=== PATIENT | female | born 1985 | race Caucasian/White ===

== ENCOUNTER → 2019-05-13 12:40 | Outpatient (CLI) | payer OTHER, SELFPAY ==
--- NOTE | ~2019-05-13 | US_ITS ---
EXAMINATION: US OB >= 14 weeks Fetus DATE: 05/13/2019 13:23 INDICATION: Second trimester anatomic survey TECHNIQUE: Real-time ultrasound of the pelvis was performed. COMPARISON: None. FINDINGS: There is a single living fetus in vertex presentation. The placenta is anterior and 6.9 cm from the i nternal cervical os. heart rate is 150 beats per minute (bpm). cardiac activity and feta l movement are noted. The amniotic fluid index is subjectively normal. The following anatomy was identified as normal: 4 chamber heart 3 vessel cord cord insertion kidneys urinary bladder stomach spine diaphragm ventricles cisterna magna cerebellum The following biometric data were obtained: Biparietal diameter (BPD): 5.5 cm; head circumference (HC): 20.1 cm; abdominal circumference (AC): 18 .3 cm; femur length (FL): 3.6 cm. The femoral length to abdominal circumference ratio is greater than two standard deviations below the mean. These measurements are otherwise concordant. Estimated weight is 503 g +/- 75 g, which correlates with the 18th percentile when 09/09/2019 is used as estimated date of delivery. As single measurements, these parameters are each equal to the following estimated gestational ages w ith ranges of +/- 2 standard deviations: BPD: 22 weeks 5 days ( 21 weeks 0 days - 24 weeks 3 days). HC: 22 weeks 2 days ( 20 weeks 6 days - 23 weeks 5 days). AC: 23 weeks 1 days ( 21 weeks 1 days - 25 weeks 2 days). FL: 21 weeks 3 days ( 19 weeks 5 days - 23 weeks 2 days). estimated gestational age based solely on measurements from this exam is 22 weeks 3 days +/- 1 weeks 4 days. IMPRESSION: 1. Single living fetus in vertex presentation. 2. Estimated weight is 503 g +/- 75 g, which correlates with the 18th percentile when 09/09/2019 is used as estimated date of delivery. 3. Femoral length to abdominal circumference ratio greater than two standard deviations below the shashank n. Reviewed, dictated and finalized at location A. IMPRESSION: 1. Single living fetus in vertex presentation. 2. Estimated weight is 503 g +/- 75 g, which correlates with the 18th per centile when 09/09/2019 is used as estimated date of delivery. 3. Femoral length to abdominal circumference ratio greater than two standard de viations below the mean.
== END ==
PROVIDERS: Visit Provider Obstetrics & Gynecology
DX: Z34.82 Encounter for supervision of other normal pregnancy, second trimester (principal); Z3A.22 22 weeks gestation of pregnancy
CPT/HCPCS: 76805

== ENCOUNTER 2023-02-05 13:43 | Inpatient (IN) | payer OTHER, SELFPAY ==
[2023-02-05] VITALS (16 sets, daily range): BP systolic 120–153; BP diastolic 75–99; PULSE 90–113; RESP 14–20; TEMP 36.1–36.6; O2SAT 94–100; BMI 35.1
--- NOTE | ~2023-02-05 | CT_ITS ---
EXAMINATION: CT brain wo con DATE: 02/05/2023 15:02 INDICATION: Head injury and dizziness TECHNIQUE: Computed tomography (CT) of the head was performed without intravenous contrast. Sagittal and coronal reconstructions were performed. The mA was adjusted according to patient size. Iterative reconstruction technique was employed. The dose-length product was 681.00 mGy-cm. COMPARISON: None FINDINGS: No fracture. No acute intracranial hemorrhage, acute infarction or abnormal extra axial fluid collect ion. Ventricles are normal and symmetric. No mass/mass effect. Small left mastoid effusion. The orbit sand paranasal sinuses are normal. IMPRESSION: 1. No fracture or acute intracranial process. Reviewed, dictated and finalized at location A. OGRAPHY COORDINATOR
--- NOTE | ~2023-02-05 | CT_ITS ---
EXAMINATION: CTA chest PE protocol DATE: 02/05/2023 15:22 INDICATION: Left-sided chest pain. Elevated troponins. TECHNIQUE: Computed tomography (CT) pulmonary angiogram of the chest was performed with 100 mL Omnipa que-350 intravenous contrast. Additional 3D reconstructions utilizing coronal maximum intensity proje ction (MIP) were performed. Automated exposure control and iterative reconstruction technique were em ployed. The dose-length product was 714.53 mGy-cm. COMPARISON: None FINDINGS: Good contrast opacification of the pulmonary arteries. There is mild streak artifact from dense contr ast in the superior vena cava and right atrium. Mild to moderate basilar predominant scattered respir atory motion artifact which mildly decreases sensitivity in the basilar segmental and subsegmental pu lmonary arteries. No pulmonary embolism. No pneumonia, pulmonary edema or other pulmonary infiltrates . No pleural effusion or pneumothorax. Heart size is normal. No pericardial effusion. Thoracic aorta is normal in caliber with no dissection. No pathologically enlarged thoracic lymphadenopathy. Status post cholecystectomy. Mild thoracic dextrocurvature with mild spondylosis. IMPRESSION: 1. No pulmonary embolism or other acute cardiopulmonary disease. Reviewed, dictated and finalized at location A. H SANDER
--- NOTE | ~2023-02-05 | XR_ITS ---
EXAMINATION: XR chest 2V DATE: 02/05/2023 14:52 INDICATION: Chest pain TECHNIQUE: PA and lateral views of the chest are obtained. COMPARISON: None available FINDINGS: The lungs are free of acute opacities. No pleural effusion or pneumothorax. The cardiomedia stinal silhouette is normal. The visualized bones and soft tissues are unremarkable. IMPRESSION: 1. No acute cardiopulmonary abnormality. Reviewed, dictated and finalized at location L. OSTRATEGY BI DEVELOPER
--- NOTE | 2023-02-05 13:44 | ECG_ITS ---
Measurements Intervals [place] Rate: 111 P: 59 OR: 156 QRS: 74 QRSD: 90 T: 55 QT: 336 QTc: 458 Interpretive Statements SINUS TACHYCARDIA POSSIBLE LEFT ATRIAL ENLARGEMENT [-0.1mV P WAVE IN V1/V2] NONSPECIFIC T-WAVE ABNORMALITY ABNORMAL ECG NO PREVIOUS ECG AVAILABLE FOR COMPARISON Electronically Signed On 02-05-2023 14:09:35 DANCE HISTORIAN by Warner Chan M.D.
[2023-02-05 14:27] LABS: Hemoglobin 15.4 g/dL (12.0-15.0); Mean Corpuscular Hemoglobin 31.9 pg (26-34); Mean Corpuscular Volume 91.1 fl (80-100); Platelet Count Result 210 k/mm3 (150-375); Red Blood Count 4.83 M/mm3 (4.2-5.4); Red Cell Distribution Width 11.7 % (11.5-14.5); White Blood Count 9.6 K/mm3 (4.5-10.0)
[2023-02-05 14:28] LABS: Basophils Percent Auto 0.3 % (0.2-1.2); Immature Granulocyte Absolute 0.02 K/mm3 (0.00-0.031); Immature Granulocyte Percent A 0.2 % (0-0.5); Lymphocytes Absolute Auto 1.84 K/mm3 (0.9-3.2); Lymphocytes Percent Auto 19.2 % (18.3-44.2); Mean Platelet Volume 10.2 fl (7.4-10.4); Monocytes Absolute Auto 0.5 K/mm3 (0.1-0.6); Monocytes Percent Auto 4.7 % (2.6-8.5); Neutrophils Absolute Auto 7.2 K/mm3 (1.3-6.7); Neutrophils Percent Auto 75.6 % (45.5-73.1)
[2023-02-05 14:39] LABS: INR 0.9; Prothrombin Time 12.6 Seconds (11.1-14.7)
[2023-02-05 14:40] LABS: Alanine Aminotransferase 25 U/L (6-35); Albumin Level 4.6 g/dL (3.5-5.1); Alkaline Phosphatase 63 U/L (38-126); Anion Gap 8 mmol/L (8-16); Aspartate Amino Transferase 32 U/L (14-36); Bilirubin,Total 0.5 mg/dL (0.2-1.3); Blood Urea Nitrogen 9 mg/dL (7-17); Calcium 10.1 mg/dL (8.4-10.2); Carbon Dioxide 23 mmol/L (22-30); Chloride 104 mmol/L (98-107); Estimated Glomerular Filt Rate > 60; Glucose 139 mg/dL (65-110); Lipase 49 U/L (23-300); Partial Thromboplastin Time 30.7 SECONDS (22.3-36.8); Potassium 3.9 mmol/L (3.4-5.0); Sodium 135 mmol/L (137-145)
--- NOTE | 2023-02-05 14:48 | ED.CHESTPAIN ---
HPI - Chest Pain General Chief Complaint: Chest Pain Stated Complaint: chest pain Time Seen by Provider: 02/05/23 14:07 History of Present Illness HPI narrative: 37-year-old female presents to the emergency department for evaluation of left-sided chest pain. Patient states that she woke up this morning she had onset of the chest pain that did radiate to her back. Patient states she did have recent cough but denies any associated fevers. Patient states the chest pain started this morning does radiate to her back. Patient denies any diaphoresis or associated nausea vomiting or shortness of breath. Patient denies any prior cardiac history denies any prior history of PE or DVT. Related Data Allergies Allergy/AdvReac Type Severity Reaction Status Date / Time azithromycin Allergy Blister Verified 02/05/23 14:22 [From Zithromax Z-Jasen] citalopram [From Celexa] AdvReac Blister Verified 02/05/23 14:22 Review of Systems Review of Systems: All systems reviewed & are unremarkable except as noted in HPI and below PMFSH Past Medical History Medical History (Updated 02/05/23 @ 16:22 by Shirley Moody PA-C) Depression Mixed connective tissue disease Social History Social History (Updated 02/05/23 @ 16:22 by Shirley Moody PA-C) Social History: Surrogate medical decision maker: Code status: Full code. Exam Narrative: APPEARANCE: Well appearing, no pain, no distress, well-nourished. HEAD: normocephalic, atraumatic. EYES: PERRLA/EOMI, conjunctivae clear. NOSE: Normal no drainage EARS:TMS clear with good light reflex. THROAT: Pharynx clear, no exudate. NECK: Supple. No adenopathy, no masses. RESPIRATORY: Airway patent, respirations nonlabored. Clear to auscultation bilaterally, no rales, rhonchi, wheezing. CARDIOVASCULAR: Regular rate and rhythm without murmurs rubs or gallops. ABDOMINAL: Soft, nontender, nondistended, normal bowel sounds MUSCULOSKELETAL: Moves all extremities. Strength/ROM intact, No edema, No calf tenderness. reproducible left-sided chest wall tenderness to palpation NEURO: Alert. Cranial nerves II through XII intact. Grossly intact SKIN: Warm, dry. Normal Color Course Course Emergency Course: 37-year-old female presenting to the ED for evaluation of left-sided chest pain. Patient is afebrile with no leukocytosis and a stable hemoglobin of 15.4. EKG showed no evidence of acute STEMI. Patient does have an elevated troponin of 0.426. CTA showed no evidence of pulmonary embolism. CTA was negative for pulmonary embolism. case was discussed with Cardiology and they are comfortable to plan for starting heparin for concern for an NSTEMI. Patient has no hematemesis, and denies any vaginal bleeding or rectal bleeding. cardiology was consulted and patient was started on heparin. Case was discussed with the hospitalist and patient was accepted for admission to the IMU. Patient and family are updated on the results of the workup plan for admission. All questions and concerns were addressed. Vital Signs Vital signs: Vital Signs Temperature 97.8 F 02/05/23 13:45 Pulse Rate 112 H 02/05/23 13:45 Respiratory Rate 16 02/05/23 13:45 Blood Pressure 131/93 H 02/05/23 13:45 Pulse Oximetry 100 02/05/23 13:45 Oxygen Delivery Room Air 02/05/23 13:45 Temperature 97.8 F 02/05/23 13:45 Pulse Rate 96 02/05/23 17:08 Respiratory Rate 17 02/05/23 17:08 Blood Pressure 153/99 H 02/05/23 16:06 Pulse Oximetry 98 02/05/23 17:08 Oxygen Delivery Room Air 02/05/23 13:45 MDM - Chest Pain Differential Diagnosis Differential diagnosis: Likely unstable angina pectoris, atypical chest pain and other Lab Data Attestation: I reviewed the patient's lab results. 02/05/23 14:17 02/05/23 14:17 Labs: Lab Results 02/05/23 02/05/23 Range/Units 14:16 14:17 WBC 9.6 (4.5-10.0) K/mm3 RBC 4.83 (4.2-5.4) M/mm3 Hgb 15.4 H (12
[2023-02-05 14:57] LABS: Troponin I 0.426 ng/mL (0.000-0.034)
[2023-02-05 15:22] LABS: D Dimer 0.34 ug/mL (<0.48)
[2023-02-05] MEDS: ASPIRIN 81 MG CHEWABLE TABLET 324 MG PO (15:25)
--- NOTE | 2023-02-05 15:45 | ECG_ITS ---
Measurements Intervals [place] Rate: 93 P: 44 [place]: 185 QRS: 63 QRSD: 95 T: 60 QT: 378 QTc: 472 Interpretive Statements SINUS RHYTHM MINOR T-WAVE ABNORMALITY BORDERLINE ECG COMPARED TO ECG 02/05/2023 13:51:47 NO SIGNIFICANT CHANGE Electronically Signed On 02-06-2023 13:49:02 TELEGRAPHIC TYPEWRITER REPAIRER by Miguel Pruitt M.D.
[2023-02-05] MEDS: MORPHINE SULFATE (*CRX) 4 MG/ML INJ IV PUSH (15:55)
[2023-02-05] MEDS: NITROGLYCERIN OINTMENT 1 INCH DOSE TRANSDERM ×2 (15:55→23:42)
--- NOTE | 2023-02-05 16:18 | PM.IMHP ---
H&P: HPI History of Present Illness Date/Time: 02/05/23 16:00 Chief Complaint: Chest pain. Narrative: This is a pleasant 37-year-old female smoker with mixed connective tissue disease no longer on medication who presented to the emergency department via private vehicle from home for evaluation of chest pain. The patient provides the following history. She felt fine when she went to sleep last night and when she got up around 07:00 she noticed a burning and pressure-like discomfort in the left upper chest. At times it radiates across to the right upper chest and to the left shoulder and left upper arm. She feels a bit short of breath with that as well and reports having 1 episode of nausea and vomiting this morning. She denies aggravating factors. Morphine 4 mg given in the ED improved her discomfort from 06/02 to 05/02. Nitropaste has not had any meaningful affect. Initial troponin was 0.426. EKG did not show any acute ST segment elevations or depressions. She was started on a heparin drip and is being admitted to the IMU in this setting for close monitoring and Cardiology consultation. She has no known history of cardiac disease. Her father of an [place] in his late 50s. She believes her sister had some sort of cardiac event in her 20s but they are not in close contact and she does not know any specifics. She has never had similar symptoms. Review of Systems Review of Systems: Twelve systems were reviewed. Patient reports having a fall approximately 1 week ago where she hit her head on the left side of her chest. There was no loss of consciousness or injuries. She did not notice any bruising over the chest wall. No fever, chills, or sweats. No recent cold or flu symptoms. She was diagnosed with mixed connective tissue disorder, unspecified, couple of years ago. She has been on several DMARDs and she was last prescribed leflunomide though she has not taken that for at least 5 months that she did not see any benefit from it. She endorses Raynaud's as well. She believe she has Sjogren's but has always tested negative for it. No orthopnea, paroxysmal nocturnal dyspnea, or lower extremity edema. She denies recent travel. No history of venous thromboembolism. Except as documented, all other systems were reviewed and are negative. [facility] Past Medical History Medical History (Updated 02/05/23 @ 22:28 by Shirley Moody PA-C) Depression Mixed connective tissue disease Tobacco dependence Surgical History Surgical History (Updated 02/05/23 @ 22:27 by Shirley Moody PA-C) History of cholecystectomy Family History Family History Mother Hyperlipidemia Rheumatoid arthritis Sibling Heart attack Multiple sclerosis Breast cancer Father Heart attack Social History Social History (Updated 02/05/23 @ 22:27 by Shirley Moody PA-C) Social History: Surrogate medical decision maker: Jose Armando Burt, spouse. Code status: Full code. Smoking packs per day: 1 Smoking cigarettes per day: 20.0 Years smoked: 15 Smoking pack-years: 15.00 Smoking status: Current every day smoker Lack of Transportation: No Lack of Food: Never True Current Housing: I Have Housing Concerned About Future Housing: No Difficulty Paying Gas/Electric Bills: No Difficulty Paying for Meds: YES Currently Unemployed: YES Education: Trade/Vocational Certificate Difficulty w/ Childcare or Family Care: No Additional living arrangements comments: Lives with spouse in 3-1/2-year-old daughter. Additional occupation/education comments: Homemaker. Spiritual care concerns: No Meds Home Medications and Allergies Home Medications Medication Instructions Recorded Confirmed Type melatonin 5 mg tablet 5 mg PO HS 02/05/23 02/05/23 History omeprazole 40 mg capsule,delayed 40 mg PO DAILY 02/05/23 02/05/23 History release vilazodone 10 mg tablet 10 mg DAILY 02/05/23 02/05/23 H
[2023-02-05] MEDS: HEPARIN SOD/D5W 100 UNITS/ML 25,000 UNITS/250 ML BAG 9 UNITS IV CONT (16:28)
[2023-02-05] MEDS: HEPARIN SODIUM 5,000 UNITS/ML VIAL 4000 UNITS IV PUSH ×2 (16:28→23:28)
--- NOTE | 2023-02-05 17:27 | ECG_ITS ---
Measurements Intervals [place] Rate: 89 P: 40 [place]: 181 QRS: 60 QRSD: 89 T: 60 QT: 388 QTc: 475 Interpretive Statements SINUS RHYTHM NORMAL ELECTROCARDIOGRAM COMPARED TO ECG 02/05/2023 16:02:14 NO SIGNIFICANT CHANGES Electronically Signed On 02-06-2023 13:52:27 GLOBAL PROFESSIONAL by Miguel Pruitt M.D.
--- NOTE | 2023-02-05 18:50 | ADMGEN ---
This patient, Isabelle Good, was admitted to IMU Room 202-01 at 1840. Patient/family oriented to hospital policies and general routines including ID bracelet, bed and alarms, visiting hours, pain management, procedures, bathroom and other care routines, personal items, smoking policy, room service/diet, and visiting hours. Information on how to activate the Rapid Response Team has been discussed. Patient/Family are encouraged to report perceived risks to care and to ask questions if they do not understand what they are told or what they should do.
--- NOTE | 2023-02-05 22:00 | ECG_ITS ---
Measurements Intervals [place] Rate: 104 P: 52 [place]: 188 QRS: 76 QRSD: 90 T: 72 QT: 365 QTc: 482 Interpretive Statements SINUS TACHYCARDIA NONSPECIFIC T-WAVE ABNORMALITY ABNORMAL RHYTHM ECG COMPARED TO ECG 02/05/2023 17:13:53 SINUS TACHYCARDIA NOW PRESENT NO SIGNIFICANT CHANGE Electronically Signed On 02-06-2023 14:01:35 MECHANICAL MAINTENANCE ENGINEER by Miguel Pruitt M.D.
[2023-02-05] MEDS: MORPHINE SULFATE (*CRX) 2 MG/ML INJ IV PUSH (22:07)
[2023-02-05 23:03] LABS: Partial Thromboplastin Time 43.9 SECONDS (22.3-36.8)
[2023-02-05] MEDS: METOPROLOL TARTRATE 25 MG TABLET PO (23:25)
[2023-02-05] MEDS: MELATONIN 5 MG TABLET PO (23:25)
[2023-02-05] MEDS: NITROGLYCERIN SL 0.4 MG TABLET SUBLINGUAL (23:26)
[2023-02-05 23:55] LABS: Amphetamine Screen Urine Negative (Negative); Barbiturate Screen Urine Negative (Negative); Benzodiazepines Screen Urine Negative (Negative); Cannabinoid Screen Urine Negative (Negative); Cocaine Screen Urine Negative (Negative); Methadone Screen Urine Negative (Negative); Opiate Screen Urine Positive (Negative); Phencyclidine Screen Urine Negative (Negative)
[2023-02-06] VITALS (25 sets, daily range): BP systolic 89–114; BP diastolic 58–78; PULSE 84–106; RESP 14–21; TEMP 36.1–36.4; O2SAT 97–100
[2023-02-06] MEDS: ACETAMINOPHEN 325 MG TABLET 650 MG PO ×4 (04:40→21:29)
[2023-02-06] MEDS: NITROGLYCERIN OINTMENT 1 INCH DOSE TRANSDERM (05:41)
[2023-02-06 06:11] LABS: Basophils Percent Auto 0.2 % (0.2-1.2); Hematocrit 41.9 % (37.0-47.0); Hemoglobin 14.1 g/dL (12.0-15.0); Immature Granulocyte Absolute 0.04 K/mm3 (0.00-0.031); Immature Granulocyte Percent A 0.4 % (0-0.5); Lymphocytes Absolute Auto 2.43 K/mm3 (0.9-3.2); Lymphocytes Percent Auto 25.3 % (18.3-44.2); Mean Corpuscular HGB Conc 33.7 g/dl (32-36); Mean Corpuscular Hemoglobin 31.7 pg (26-34); Mean Corpuscular Volume 94.2 fl (80-100); Mean Platelet Volume 10.3 fl (7.4-10.4); Monocytes Absolute Auto 0.6 K/mm3 (0.1-0.6); Monocytes Percent Auto 6.1 % (2.6-8.5); Neutrophils Absolute Auto 6.5 K/mm3 (1.3-6.7); Platelet Count Result 202 k/mm3 (150-375); Red Blood Count 4.45 M/mm3 (4.2-5.4); Red Cell Distribution Width 11.9 % (11.5-14.5); White Blood Count 9.6 K/mm3 (4.5-10.0)
[2023-02-06 06:25] LABS: Partial Thromboplastin Time 74.9 SECONDS (22.3-36.8)
[2023-02-06] MEDS: ASPIRIN 81 MG CHEWABLE TABLET PO (08:42)
[2023-02-06] MEDS: METOPROLOL TARTRATE 25 MG TABLET PO (08:42)
[2023-02-06] MEDS: PANTOPRAZOLE 40 MG TABLET PO ×2 (08:42→17:34)
--- NOTE | 2023-02-06 10:07 | PM.CNCAR ---
Assessment and Plan Assessment and plan (1) Non-ST elevation myocardial infarction (NSTEMI): Code(s): I21.4 - Non-ST elevation (NSTEMI) myocardial infarction Status: Acute Plan this is a 37-year-old woman presenting to the hospital with a chest pain syndrome yesterday she says she has been having episodes like this for a number of years but never has had a diagnosis made other than anxiety. Her electrocardiograms are benign but her troponin level did significantly rise raising concern regarding premature coronary disease. In this setting and angiogram should be performed she understands this the procedure along with its risks and details were explained to the patient at the time of this consultation. It is certainly possible that she has early coronary disease given her history of smoking at this also likely that this could represent an episode of vasospastic infarction or spontaneous coronary dissection in this relatively young woman Miguel Pruitt MD [facility] History of Present Illness History of Present Illness Consult date/time: 02/06/23 10:07 Reason For Visit: chest pain,elevated troponin Narrative: this is a 37-year-old woman I am seeing at the request of the hospitalist this morning because of chest pain with significant troponin elevation in the presumptive diagnosis of non ST elevation [place]. She is unknown to me prior to this encounter. She is not known to have any specific cardiac problems prior to this. She does carry the diagnosis of an anxiety disorder and she has been having episodes of occasional chest pain for a number of years. She says that she typically does not seek medical attention for this and on occasions when she has she has had negative ER evaluations and has been told that she probably has an anxiety disorder. She does follow with the psychiatrist for this. She is a cigarette smoker but does not have any other known risk factors for ischemic heart disease. She was awakened from sleep yesterday in the morning with some chest pain she describes it is a dull throbbing sensation in the region of her left breast. It radiated across to the right side of the chest and then up into both shoulders during the course of the day. There was no associated air hunger nausea vomiting or diaphoresis. In the afternoon she did decide to come into the emergency room for evaluation. Her electrocardiogram appeared to be unremarkable her troponin levels were slightly out of normal range but following that nancy up to over 8. She has had 4 electrocardiograms done since she has been admitted which were unremarkable. She has been anticoagulated with heparin and given some nitroglycerin paste which has caused her to have a headache. The chest pain gradually faded away during the course of the evening last evening she only is complaining of what appears to be a nitrate headache this morning. She does not exercise regularly but does not have a history of exertional chest pain in general. She is and has a 3-year-old daughter. Review of Systems Constitutional: Constitutional: Reports no additional constitutional complaints Eyes: Eyes: Reports no additional eye complaints ENT: Reports system reviewed and no additional complaints, except as documented Cardiovascular: Cardiovascular: Reports as per HPI Respiratory: Respiratory: Reports no additional respiratory complaints Gastrointestinal: Gastrointestinal: Reports no additional gastrointestinal complaints Musculoskeletal: Musculoskeletal: Reports no additional musculoskeletal complaints Integumentary/Breasts: Skin/Breast: Reports system reviewed and no additional complaints, except as docu Neurologic: Reports system reviewed and no additional complaints, except as documented Psychiatric: Psychiatric: Reports as per HPI Endocrine: Endocrine: Reports no additional endocrine complaints Hematologic/Lymphatic: Hematologic/Lymphatic: Reports no additional hemato
--- NOTE | 2023-02-06 10:13 | WPDMODSED ---
Moderate Sedation Note-Pt Data Patient Data Diagnosis: acute coronary syndrome/ non ST elevation [place] Present Complaint: chest pain Procedure to be performed/Plan: left heart catheterization Allergies Allergy/AdvReac Type Severity Reaction Status Date / Time azithromycin Allergy Blister Verified 02/05/23 14:22 [From Zithromax Z-Jasen] citalopram [From Celexa] AdvReac Blister Verified 02/05/23 14:22 Home Medications Medication Instructions Recorded Confirmed Type melatonin 5 mg tablet 5 mg PO HS 02/05/23 02/05/23 History omeprazole 40 mg capsule,delayed 40 mg PO DAILY 02/05/23 02/05/23 History release vilazodone 10 mg tablet 10 mg DAILY 02/05/23 02/05/23 History vilazodone 20 mg tablet 20 mg DAILY 02/05/23 02/05/23 History Current Medications: Active Medications Acetaminophen (Acetaminophen 325 Mg Tablet) 650 mg PO Q4H PRN PRN Reason: Mild Pain (1-3) or Fever Last Admin: 02/06/23 08:45 Dose: 650 mg Aspirin (Aspirin 81 Mg Chewable Tablet) 81 mg PO DAILY@0800 [facility] Last Admin: 02/06/23 08:42 Dose: 81 mg Heparin Sodium (Porcine) (Heparin Sodium 5,000 Units/Ml Vial) 4,000 units IV PUSH PRN PRN PRN Reason: aPTT less than 55 seconds Last Admin: 02/05/23 23:28 Dose: 4,000 units Heparin Sodium (Porcine) (Heparin Sodium 5,000 Units/Ml Vial) 3,000 units IV PUSH PRN PRN PRN Reason: aPTT 55 - 70 seconds Heparin Sodium/Dextrose (Heparin Sodium/D5w 100 Units/Ml) 25,000 units in 250 mls @ 12 mls/hr IV CONT .[id number] [facility]; Protocol Last Titration: 02/06/23 06:41 Dose: 1,200 units/hr, 12 mls/hr Melatonin (Melatonin 5 Mg Tablet) 5 mg PO HS [facility] Last Admin: 02/05/23 23:25 Dose: 5 mg Metoprolol Tartrate (Metoprolol Tartrate 25 Mg Tablet) 25 mg PO Q12HR [facility] Last Admin: 02/06/23 08:42 Dose: 25 mg Morphine Sulfate (Morphine Sulfate (*Crx) 2 Mg/Ml Inj) 2 mg IV PUSH Q2H PRN PRN Reason: Pain Rated 7-10 Last Admin: 02/05/23 22:07 Dose: 2 mg Nitroglycerin (Nitroglycerin Sl 0.4 Mg Tablet) 0.4 mg SUBLINGUAL Q5MIN PRN PRN Reason: Chest Pain Last Admin: 02/05/23 23:26 Dose: 0.4 mg Nitroglycerin (Nitroglycerin Ointment 1 Inch Dose) 1 inch TRANSDERM Q6HR [place] Last Admin: 02/06/23 05:41 Dose: 1 inch Ondansetron HCl (Ondansetron Inj 4 Mg/2 Ml Vial) 4 mg IV PUSH Q4H PRN PRN Reason: Nausea Pantoprazole Sodium (Pantoprazole 40 Mg Tablet) 40 mg PO BID [facility] Last Admin: 02/06/23 08:42 Dose: 40 mg Sedation/Anesthesia: No previous sedation/anesthesia problems (including family history). [facility] Past Medical History Medical History (Updated 02/05/23 @ 22:28 by Shirley Moody PA-C) Depression Mixed connective tissue disease Tobacco dependence Surgical History Surgical History (Updated 02/05/23 @ 22:27 by Shirley Moody PA-C) History of cholecystectomy Family History Family History Mother Hyperlipidemia Rheumatoid arthritis Sibling Heart attack Multiple sclerosis Breast cancer Father Heart attack Social History Social History (Updated 02/05/23 @ 22:27 by Shirley Moody PA-C) Social History: Surrogate medical decision maker: Jose Armando Good, spouse. Code status: Full code. Smoking packs per day: 1 Smoking cigarettes per day: 20.0 Years smoked: 15 Smoking pack-years: 15.00 Smoking status: Current every day smoker Lack of Transportation: No Lack of Food: Never True Current Housing: I Have Housing Concerned About Future Housing: No Difficulty Paying Gas/Electric Bills: No Difficulty Paying for Meds: YES Currently Unemployed: YES Education: Trade/Vocational Certificate Difficulty w/ Childcare or Family Care: No Additional living arrangements comments: Lives with spouse in 3-1/2-year-old daughter. Additional occupation/education comments: Homemaker. Spiritual care concerns: No Mod Sed Physical Exam Physical Exam Pre Procedural Exam: Normal: Neck, Throat,
--- NOTE | 2023-02-06 10:35 | PC.NURSE ---
Patient to Histologist Technologist
--- NOTE | 2023-02-06 11:22 | P.PCNCC_ITS ---
Cardiac Cath Procedure Note Date of procedure:: 02/06/23 Performing physician:: Miguel Pruitt MD Indication:: chest pain troponin rise / coronary syndrome Brief clinical history:: this is a 37-year-old woman without any prior history of coronary disease who entered the hospital with a chest pain event which has resolved. Her electrocardiograms have looked benign but troponin level did rise significantly. This prompted recommendation for angiography. Risk factors include cigarette smoking Procedure Procedure performed:: left ventriculogram coronary angiogram Sedation/Medication given:: fentanyl 25 mg Versed 2 mg case start time 11:01 a.m. case end time 11:19 a.m. sedation provided by Michael Pollard RN, trained observer Access site:: right femoral artery Estimated blood loss:: 25 cc Procedure note:: patient brought to the cardiac catheterization lab in the postabsorptive state where the right femoral triangle was prepared and draped in the usual fashion. Anesthesia was given with 1% lidocaine infiltrated locally. Using the modified Seldinger technique a 5 Chadian sheath was placed into the right femoral artery and left heart catheterization was then carried out. I initially used a 5 Chadian angled pigtail catheter to measure left-sided hemodynamics and to inject and left ventriculogram in the JONES projection. Following this standard 5 Chadian FL4 catheter was used to engage inject the left coronary artery in multiple projections. A 5 Chadian JR4 catheter was used to engage the inject the right coronary artery in orthogonal projections. The procedure was then terminated the angiograms were reviewed. The sheath was removed in the room on the clinical laboratory science professor table with direct manual compression. There were no apparent procedural complications and there was no evidence of groin hematoma at conclusion of the case. Findings:: Hemodynamics: central aortic pressure is 100/64. left ventricle 100/0 end-diastolic 8. No transvalvular gradient on pullback across the aortic valve. Left ventricle: The LV is normal in size contractility is hyperdynamic with an ejection fraction of 80% without any regional wall motion abnormalities. The left main coronary artery is nicely patent the left anterior descending is a moderate caliber artery extending down to the apex. There is minimal luminal irregularity noted in the proximal LAD but no functionally significant stenosis is seen in the entirety of the LAD or in its branches. No evidence of a spontaneous coronary dissection was seen the circumflex is a large caliber vessel giving rise to the marginal branches and a large posterior branch. The circumflex system is smooth and angiographically normal in appearance the right coronary artery is large in caliber and dominant to the posterior circulation the right coronary artery is also smooth and angiographically normal in appearance Conclusion:: 1. right coronary dominant circulation with minimal plaquing in the proximal LAD but no functionally significant coronary artery disease is identified 2. hyperdynamic left ventricular systolic function 3. presumptive diagnosis of her chest pain in troponin rise appears to be coronary spasm. Miguel Pruitt MD FACC Assessment and Plan Assessment and plan (1) Non-ST elevation myocardial infarction (NSTEMI): Code(s): I21.4 - Non-ST elevation (NSTEMI) myocardial infarction Status: Acute
--- NOTE | 2023-02-06 11:30 | PM.IMPN ---
Progress Note: A&P Assessment and Plan (1) Non-ST elevation myocardial infarction (NSTEMI): Code(s): I21.4 - Non-ST elevation (NSTEMI) myocardial infarction Status: Acute Assessment and Plan: Chest CTA was negative for PE and other acute findings. EKG shows sinus tachycardia with some nonspecific T-wave abnormalities. Troponin trend: 0.426 --> 1.590 --> 7.880. No known history of cardiac disease but early family history of the same. Received aspirin 324 mg x 1 in the ED. She has been started on a heparin drip. Schedule metoprolol tartrate 25 mg b.i.d.. Patient is scheduled for cardiac catheterization today. Will continue with IV heparin.. (2) Mixed connective tissue disease: Code(s): M35.1 - Other overlap syndromes Status: Acute Assessment and Plan: She has been off leflunomide for the last 5 months or so as she saw no benefit. Patient will be referred back to primary care for evaluation and treatment (3) Depression: Code(s): F32.A - Depression, unspecified Status: Acute Assessment and Plan: No acute issues. Continue vilazodone. (4) Tobacco dependence: Code(s): F17.200 - Nicotine dependence, unspecified, uncomplicated Status: Acute Assessment and Plan: Smoking cessation is imperative and was discussed. Patient was told she will not receive a nicotine patch given [place]. Subjective Date/time seen: 02/06/23 11:30 Interval history: Patient was seen during rounds today. Patient has mild chest pain. No shortness of breaths Abdominal pain, nausea, no vomiting. Mood stable. Review of Systems Review of Systems: Twelve systems were reviewed. Patient reports having a fall approximately 1 week ago where she hit her head on the left side of her chest. There was no loss of consciousness or injuries. She did not notice any bruising over the chest wall. No fever, chills, or sweats. No recent cold or flu symptoms. She was diagnosed with mixed connective tissue disorder, unspecified, couple of years ago. She has been on several DMARDs and she was last prescribed leflunomide though she has not taken that for at least 5 months that she did not see any benefit from it. She endorses Raynaud's as well. She believe she has Sjogren's but has always tested negative for it. No orthopnea, paroxysmal nocturnal dyspnea, or lower extremity edema. She denies recent travel. No history of venous thromboembolism. Except as documented, all other systems were reviewed and are negative. Exam Narrative: General: A well-developed, nontoxic-appearing female sitting up in bed in no acute distress. Weight: 98.7 kg. BMI: 35.1. HEENT: PERRL, EOMI. Sclera anicteric. Tacky mucous membranes. Upper and lower denture plates in place. Neck: Supple. Respiratory: Lungs are clear to auscultation bilaterally. Cardiovascular: Regular rate and rhythm with S1-S2. Gastrointestinal: Abdomen is soft, nontender, and nondistended with positive bowel sounds. Skin: Warm and dry. No rash or lesions on limited exam. Extremities: No cyanosis, clubbing, or edema. Radial and pedal pulses intact. Neurological: Alert. Cranial nerves 2-12 are grossly intact. No gross focal deficits to casual conversation. Psychiatric: Pleasant and cooperative with normal mood and affect. Judgment and insight intact. Objective Data Vital Signs Vital Signs: Vital Signs - 24 hr 02/05/23 13:45 02/05/23 16:06 02/05/23 13:59 Temperature 36.6 C Pulse Rate 112 H 90 96 Respiratory Rate 16 20 Blood Pressure 131/93 H 153/99 H Pulse Oximetry 100 99 Oxygen Delivery Room Air 02/05/23 14:16 02/05/23 15:22 02/05/23 15:30 Temperature Pulse Rate 100 100 99 Respiratory Rate 14 16 16 Blood Pressure 150/96 H Pulse Oximetry 94 99 Oxygen Delivery 02/05/23 16:00 02/05/23 16:01 02/05/23 16:15 Temperature Pulse Rate 93 94 92 Respiratory Rate 16 16 14 Blood Pressure 153/99 H Pulse
--- NOTE | 2023-02-06 13:07 | PC.NURSE ---
Patient back from [facility]
[2023-02-06] MEDS: SODIUM CHLORIDE 0.9% IV 1,000 ML 125 ML IV CONT (13:16)
[2023-02-06] MEDS: dilTIAZem HCL CD 120 MG CAP.24HR PO (13:17)
[2023-02-06] MEDS: MORPHINE SULFATE (*CRX) 2 MG/ML INJ IV PUSH (13:21)
[2023-02-06 14:34] LABS: Activated Clotting Time 125 SEC (74-137)
[2023-02-06 14:45] LABS: Partial Thromboplastin Time 29.4 SECONDS (22.3-36.8)
[2023-02-06] MEDS: MELATONIN 5 MG TABLET PO (21:28)
[2023-02-07] VITALS (7 sets, daily range): BP systolic 96–112; BP diastolic 62–69; PULSE 85–107; RESP 14–18; TEMP 35.9–36.3; O2SAT 94–98
[2023-02-07] MEDS: ASPIRIN 81 MG CHEWABLE TABLET PO (08:57)
[2023-02-07] MEDS: ISOSORBIDE MONONITRATE 30 MG TAB.ER.24H PO (08:57)
[2023-02-07] MEDS: dilTIAZem HCL CD 120 MG CAP.24HR PO (08:57)
[2023-02-07] MEDS: PANTOPRAZOLE 40 MG TABLET PO (08:57)
--- NOTE | 2023-02-07 10:27 | PM.PNCARD ---
Progress Note: A&P Assessment and Plan (1) Non-ST elevation myocardial infarction (NSTEMI): Code(s): I21.4 - Non-ST elevation (NSTEMI) myocardial infarction Status: Acute Plan 37-year-old lady with history of smoking but no other coronary risk factors she has presumed diagnosis of coronary spasm event as she had chest pain with moderate troponin rise but no significant coronary lesions seen angiographically. Low doses of isosorbide and diltiazem were started yesterday. She has some nausea today because of unpleasant odor in her room. Otherwise she is not having any cardiovascular issues this morning. In my opinion she is hopefully stable enough to be discharged. I will arrange appropriate follow-up in my office for this. We will reach out to her for an appointment on Thursday. Miguel Pruitt MD [facility] Subjective Date/time seen: Date of service: 02/07/23 10:27 Interval history: Follow-up visit in this 37-year-old woman with: Episode of chest pain with troponin rise indicative of acute myocardial injury. Upon angiography yesterday patient found not to have any significant coronary artery disease. Started on low doses of isosorbide and diltiazem for presumed coronary spasm event. Left ventricular systolic function was found to be hyperdynamic at the time of angiography. Exam Const: General: comfortable and no acute distress Other: Pleasant obese young lady no distress, somewhat nauseated this morning due to malodorous room HENMT: Mouth: Yes moist mucous membranes Eyes: Sclera: sclerae normal Neck: Neck: supple and no JVD Resp: Effort & Inspection: normal respiratory effort Auscultation: clear to auscultation bilaterally Cardio: Rate: regular rate Rhythm: regular rhythm Other: No murmur no gallop GI: GI Palp: Yes Soft to palpation Auscultation: normal bowel sounds Skin: General skin exam: normal color Neuro: Other: Alert and oriented x3 Extrem: Other: Normal pulses, no edema Objective Data Vital Signs Vital Signs: Vital Signs - 24 hr 02/06/23 12:00 02/06/23 12:15 02/06/23 12:30 Temperature Pulse Rate 85 84 91 Respiratory Rate 18 16 21 H Blood Pressure 89/69 L 100/71 95/78 L Pulse Oximetry 98 98 97 Oxygen Delivery Room Air Room Air Room Air 02/06/23 12:45 02/06/23 13:00 02/06/23 13:21 Temperature 36.4 C L Pulse Rate 94 93 89 Respiratory Rate 19 14 16 Blood Pressure 96/67 L 103/71 96/68 L Pulse Oximetry 98 98 97 Oxygen Delivery Room Air Room Air 02/06/23 14:00 02/06/23 14:21 02/06/23 13:30 Temperature 36.4 C L Pulse Rate 84 84 Respiratory Rate 14 Blood Pressure 108/65 Pulse Oximetry 100 Oxygen Delivery Room Air 02/06/23 15:05 02/06/23 16:49 02/06/23 16:00 Temperature 36.4 C L 36.4 C Pulse Rate 91 96 93 Respiratory Rate 18 18 Blood Pressure 109/67 107/65 Pulse Oximetry 99 97 Oxygen Delivery 02/06/23 16:00 02/06/23 18:00 02/06/23 17:00 Temperature Pulse Rate 99 94 Respiratory Rate 16 Blood Pressure 112/58 L Pulse Oximetry 99 Oxygen Delivery Room Air 02/06/23 18:00 02/06/23 21:08 02/06/23 20:00 Temperature 36.4 C L 36.2 C L Pulse Rate 99 92 103 H Respiratory Rate 14 14 Blood Pressure 114/64 106/72 Pulse Oximetry 100 100 Oxygen Delivery 02/06/23 20:00 02/06/23 22:00 02/07/23 00:00 Temperature 36.3 C L Pulse Rate 95 95 Respiratory Rate 14 Blood Pressure 112/66 Pulse Oximetry 100 94 Oxygen Delivery Room Air 02/07/23 00:00 02/07/23 00:00 02/07/23 02:00 Temperature Pulse Rate 93 95 Respiratory Rate Blood Pressure Pulse Oximetry 94 Oxygen Delivery Room Air 02/07/23 04:00 02/07/23 04:00 02/07/23 04:00 Temperature 35.9 C L Pulse Rate 96 85 Respiratory Rate 14 Blood Pressure 96/65 L Pulse Oximetry 96 96 Oxygen Delivery Room Air 02/07/23 06:00 02/07/23 08:00 Temperature 36.2 C L Pulse Rate 91 104 H Respiratory Rat
--- NOTE | 2023-02-07 14:06 | PM.DS ---
DS: Admitting Diagnosis Discharge Date 02/07/23 Admitting Diagnosis Chest pain DS: Discharge Diagnosis Discharge Diagnosis (1) Non-ST elevation myocardial infarction (NSTEMI): Code(s): I21.4 - Non-ST elevation (NSTEMI) myocardial infarction Status: Acute Assessment and Plan: Chest CTA was negative for PE and other acute findings. EKG shows sinus tachycardia with some nonspecific T-wave abnormalities. Troponin trend: 0.426 --> 1.590 --> 7.880. No known history of cardiac disease but early family history of the same. Received aspirin 324 mg x 1 in the ED. She has been started on a heparin drip. Schedule metoprolol tartrate 25 mg b.i.d.. Patient is scheduled for cardiac catheterization today. Will continue with IV heparin.. (2) Mixed connective tissue disease: Code(s): M35.1 - Other overlap syndromes Status: Acute Assessment and Plan: She has been off leflunomide for the last 5 months or so as she saw no benefit. Patient will be referred back to primary care for evaluation and treatment (3) Depression: Code(s): F32.A - Depression, unspecified Status: Acute Assessment and Plan: No acute issues. Continue vilazodone. (4) Tobacco dependence: Code(s): F17.200 - Nicotine dependence, unspecified, uncomplicated Status: Acute Assessment and Plan: Smoking cessation is imperative and was discussed. Patient was told she will not receive a nicotine patch given [place]. DS: Summary Hospital Course Hospital Course: 37-year-old female smoker with mixed connective tissue disease no longer on medication who presented to the emergency department via private vehicle from home for evaluation of chest pain Episode of chest pain with troponin rise indicative of acute myocardial injury.? Upon angiography patient found not to have any significant coronary artery disease.? Started on low doses of isosorbide and diltiazem for presumed coronary spasm event.? Left ventricular systolic function was found to be hyperdynamic at the time of angiography. All symptoms resolved. She was discharged in stable condition with close outpatient follow-up. Please see above and med rec for details. Time Spent with Patient Time attestation: Total time spent providing and/or coordinating discharge services: Exam Narrative: General: A well-developed, nontoxic-appearing female sitting up in bed in no acute distress. Weight: 98.7 kg. BMI: 35.1. HEENT: PERRL, EOMI. Sclera anicteric. Tacky mucous membranes. Upper and lower denture plates in place. Neck: Supple. Respiratory: Lungs are clear to auscultation bilaterally. Cardiovascular: Regular rate and rhythm with S1-S2. Gastrointestinal: Abdomen is soft, nontender, and nondistended with positive bowel sounds. Skin: Warm and dry. No rash or lesions on limited exam. Extremities: No cyanosis, clubbing, or edema. Radial and pedal pulses intact. Neurological: Alert. Cranial nerves 2-12 are grossly intact. No gross focal deficits to casual conversation. Psychiatric: Pleasant and cooperative with normal mood and affect. Judgment and insight intact. DS: Data Data Completed and Pending Labs on day of discharge: Labs from last 24 hours 02/06/23 02/06/23 14:22 11:20 APTT 29.4 Activ Coag Time Kaolin 125 Discharge Plan Discharge Attending physician on discharge: Allie Renteria Consulting providers: Warner Chan; Miguel Pruitt; Yang Mascorro; Matt Domínguez; Shirley Moody; Saqib Raymond Discharging Clinician: Allie Renteria Patient Disposition: Home, Self-Care Activity: other - see discharge instructions Diet: heart healthy Wound Care Instructions: other - see discharge instructions Discharge Instructions: [facility]
== END 2023-02-07 13:50 | disposition home or self-care (01) | DRG 281 ==
LOC: ANHED 15:49 → ANHIMU 16:42
PROVIDERS: Internal Medicine Cardiovascular Disease; Physician Assistant; Specialist; Admitting Provider General Practice; Emergency Provider Emergency Medicine; Visit Provider Student in an Organized Health Care Education/Training Program
PROC: 4A023N7 Measurement of Cardiac Sampling and Pressure, Left Heart, Percutaneous Approach (ICD-10-PCS; CPT 93452; principal; 2023-02-06 11:00)
DX: I21.4 Non-ST elevation (NSTEMI) myocardial infarction (principal); M35.1 Other overlap syndromes; F41.9 Anxiety disorder, unspecified; F32.A Depression, unspecified; F17.210 Nicotine dependence, cigarettes, uncomplicated; Z90.49 Acquired absence of other specified parts of digestive tract
CPT/HCPCS: 36415; 70450; 71046; 71275; 80053; 80307; 83690; 84484; 85025; 85380; 85610; 85730; 93005; 93458; 96365; 96366; 96375; 99285; A9270; C1887; C1894; G0378; J1644; J2250; J2270; J3010; J7030; Q9967

== ENCOUNTER 2024-08-13 09:48 | Emergency (ER) | payer OTHER, SELFPAY ==
[2024-08-13 09:58] VITALS: BP 144/89; PULSE 98; RESP 18; TEMP 35.9; O2SAT 100
--- NOTE | 2024-08-13 10:50 | ED_ITS ---
HPI - Ear Problem General Chief complaint: Ear Stated complaint: Ear Pain Time Seen by Provider: 08/13/24 10:25 Source: patient and RN notes reviewed Mode of arrival: ambulatory Limitations: no limitations History of Present Illness HPI Narrative: 39-year-old female presents [facility] complaining of bilateral ear pain for approximately 2 weeks. Patient says it has gotten progressively worse over the last week. Patient has ear tube in her right ear her reports having chronic ear problems she sees an ENT for. Patient has appointment with ENT on Thursday the following week. Patient reports having otorrhea out of her right ear. Patient states she did swelling approximately 2 weeks ago but she were ear plugs to prevent water from getting into her ears. Patient denies any upper respiratory symptoms, fever, cough who does a couple of the COVID tinnitus, dizziness, or any other symptoms. Related Data Home Medications ?Medication ?Instructions ?Recorded ?Confirmed ?Last Taken ?Type melatonin 5 mg tablet 5 mg PO HS 02/05/23 08/13/24 Unknown History diltiazem HCl 120 mg capsule,24 120 mg PO DAILY 06/26/23 08/13/24 Unknown History hr,extended release (Tiadylt ER) isosorbide mononitrate 30 mg 30 mg PO DAILY 06/26/23 08/13/24 Unknown History tablet,extended release 24 hr nitroglycerin 0.3 mg sublingual 0.3 mg sublingual Q5M 06/26/23 08/13/24 Unknown History tablet (Nitrostat) omeprazole 40 mg capsule,delayed 40 mg PO DAILY 06/26/23 08/13/24 Unknown History release vilazodone 20 mg tablet 20 mg PO DAILY 06/26/23 08/13/24 Unknown History Allergies Allergy/AdvReac Type Severity Reaction Status Date / Time azithromycin Allergy Unknown BLISTERS Verified 08/13/24 09:57 AROUND MOUTH escitalopram Allergy Unknown Back Pain Verified 08/13/24 09:57 citalopram (From Celexa) AdvReac Blister Verified 08/13/24 09:57 zpack AdvReac Mild Blister Uncoded 08/13/24 09:57 Review of Systems Review of Systems: CONSTITUTIONAL: Denies fever, chills, body aches, or sweats. EYES: Denies visual changes, redness, or discharge. ENT: Negative for rhinorrhea, congestion, sore throat. Positive for otalgia and otorrhea. CARDIOVASCULAR: Denies chest pain, palpitations, or edema. RESPIRATORY: Positive for cough. Negative for dyspnea. GASTROINTESTINAL: Denies abdominal pain, nausea, vomiting, or diarrhea. GENITOURINARY: Denies dysuria or hematuria. SKIN: Denies rash or itching. MUSCULOSKELETAL: Denies back pain, joint pain, or myalgia. NEUROLOGIC: Denies headache, numbness, or weakness. PSYCHIATRIC: Denies anxiety or depression. All other systems reviewed are negative, except as documented in HPI. FOR[facility]LY [facility] Past Medical History Medical History Tobacco dependence Depression Mixed connective tissue disease Hyperlipidemia Heart attack Gallbladder & bile duct stone with obstruction Anxiety Surgical History Surgical History History of cholecystectomy Family History Family History Father Depression Heart disease Mother Alcoholism Sibling Breast cancer Hypertension Depression Mother Hyperlipidemia Rheumatoid arthritis Sibling Heart attack Multiple sclerosis Breast cancer Father Heart attack Social History Social History Social History: Surrogate medical decision maker: Jose Armando Good, spouse. Code status: Full code. Smoking packs per day: 1 Smoking cigarettes per day: 20.0 Years smoked: 15 Smoking pack-years: 15.00 Smoking status: Smoker, status unknown Tobacco type: cigarettes Alcohol intake: former Substance use: current Substance use type: marijuana Do You Feel Safe in your Home?: Yes Lack of Transportation: No Lack of Food: Never True Current Housing: I Have Housing Concerned About Future Housing: No Difficulty Paying Gas/Electric Bills: No Difficulty Paying for Meds: YES Currently Unemployed: YES Education: Trade/Vocational Certificate Difficulty w/ Childcare or Family Care: No Living arrangements: with family Additional living arrangements comments: Lives with spouse in 3-1/2-year-old daughter. Additional occupation/education comments: Homemaker. Gender identity (if verbalized by the patient): Female Sexual Orientation (if Verbalized by the Patient): Straight or Heterosexual Spiritual care concerns: No Comments At the time of my signature, I reviewed and agree with the nursing past medical, surgical, social, and family history. There is no relevant family history pertinent to the patient complaint. Exam Narrative: GENERAL: This is a well-nourished, well-developed adult, in no apparent distress. They are non ill-appearing, nontoxic appearing. HEAD: normocephalic, atraumatic. EYES: Sclera clear/white. Vision is grossly intact. Conjunctiva normal bilaterally. Extraocular movements intact. EARS: External ears normal, right auditory canal erythematous and with purulent drainage, right TM with ear tube in place, TM is erythematous. Left auditory canal clear without redness or swelling. Left TM erythematous and bulging. Left TM intact. Hearing grossly intact. NOSE: External nose normal with no obvious nasal discharge, nasal turbinates without redness or swelling, no rhinorrhea. THROAT: Mucous membranes moist, posterior pharynx clear without redness or swelling, no exudate. Uvula is midline. NECK: Neck supple, non-tender without lymphadenopathy, masses or thyromegaly. CARDIOVASCULAR: Regular rate and rhythm without murmurs, gallops, or rubs. RESPIRATORY: Clear to auscultation. Breath sounds equal bilaterally. No wheezes, rales, or rhonchi. SKIN: warm, Dry, intact with no suspicious lesions or rash, good texture and turgor. NEURO: awake, alert, and oriented to person, place and time. There were no obvious focal neurologic abnormalities. EXTREMITIES: No joint tenderness, effusion, or edema noted. BACK: Nontender without deformity. Course Course Emergency Course: Portions of this record may have been created with voice recognition software Level of Care: Express Care Visit Vital Signs Vital signs: Vital Signs Temperature 96.6 F L 08/13/24 09:58 Pulse Rate 98 08/13/24 09:58 Respiratory Rate 18 08/13/24 09:58 Blood Pressure 144/89 H 08/13/24 09:58 Pulse Oximetry 100 08/13/24 09:58 Oxygen Delivery Room Air 08/13/24 09:58 Temperature 96.6 F L 08/13/24 09:58 Pulse Rate 98 08/13/24 09:58 Respiratory Rate 18 08/13/24 09:58 Blood Pressure 144/89 H 08/13/24 09:58 Pulse Oximetry 100 08/13/24 09:58 Oxygen Delivery Room Air 08/13/24 09:58 Medical Decision Making MDM Narrative Medical decision making narrative: Appears patient has a bilateral otitis media along with otitis externa to the right auditory canal. Patient has not been on antibiotics a in the last month, will treat with amoxicillin and ofloxacin ear drops. Discussed physical exam findings. Advised supportive measures and signs/symptoms to go to the ER. Pt is appropriate for outpt treatment and f/u. Differential Diagnosis Differential Diagnosis: Otitis media, otitis externa, upper respiratory infection Vital Signs Vital Signs: Vital Signs Temperature 96.6 F L 08/13/24 09:58 Pulse Rate 98 08/13/24 09:58 Respiratory Rate 18 08/13/24 09:58 Blood Pressure 144/89 H 08/13/24 09:58 Pulse Oximetry 100 08/13/24 09:58 Oxygen Delivery Room Air 08/13/24 09:58 Temperature 96.6 F L 08/13/24 09:58 Pulse Rate 98 08/13/24 09:58 Respiratory Rate 18 08/13/24 09:58 Blood Pressure 144/89 H 08/13/24 09:58 Pulse Oximetry 100 08/13/24 09:58 Oxygen Delivery Room Air 08/13/24 09:58 Discharge Plan Discharge Clinical Impression: Otitis media, Otitis externa Patient Disposition: Home Condition: Stable Instructions: Antibiotic Form, Ear Infection (ED) Additional Instructions: Take antibiotics as directed. Use the antibiotic ear drops as directed. Recommend antihistamine such as Benadryl, Zyrtec or Deirdre for sinus congestion Flonase nasal spray, 1 spray in each nostril once daily until symptoms improve Symptomatic treatment includes: rest, fluids, and increase humidity of the air at home. You may take Tylenol ibuprofen as needed for pain. Follow-up with your ENT as scheduled this Thursday. Please go to the ER for any worsening symptoms, pain, dizziness, fevers, or any other concerns.. Patient Language: Faroese Prescriptions: New ofloxacin 0.3 % drops 10 drp RIGHT EAR DAILY 7 Days Qty: 10 0RF amoxicillin 875 mg tablet 875 mg PO Q12H 7 Days Qty: 14 0RF No Action vilazodone 20 mg tablet 20 mg PO DAILY Rx Instructions: must administer with a meal/food diltiazem HCl [Tiadylt ER] 120 mg capsule,extended release 24 hr 120 mg PO DAILY omeprazole 40 mg capsule,delayed release(DR/EC) 40 mg PO DAILY nitroglycerin [Nitrostat] 0.3 mg tablet, sublingual 0.3 mg sublingual Q5M Rx Instructions: do not exceed 3 doses per episode isosorbide mononitrate 30 mg tablet extended release 24 hr 30 mg PO DAILY melatonin 5 mg Tablet 5 mg PO HS aspirin [Children's Aspirin] 81 mg Tablet,Chewable 81 mg PO DAILY@0800 30 Days Qty: 30 0RF Follow-up/Referrals: Raji,Cisco Kent MD [Primary Care Provider] - Time of Disposition: 10:36
== END 2024-08-13 10:41 | disposition home or self-care (01) ==
PROVIDERS: PCP Emergency Medicine
DX: H66.93 Otitis media, unspecified, bilateral (principal); H60.91 Unspecified otitis externa, right ear; F17.210 Nicotine dependence, cigarettes, uncomplicated; F12.90 Cannabis use, unspecified, uncomplicated; E78.5 Hyperlipidemia, unspecified; F32.A Depression, unspecified; M35.1 Other overlap syndromes
CPT/HCPCS: 99213; G0463